=== PATIENT | female | born 1980 | race Caucasian/White ===

== ENCOUNTER 2017-10-29 15:12 | Inpatient (IN) | payer OTHER ==
[~2017-10-29] VITALS: Ht 170.2 cm; Wt 124.9 kg
--- NOTE | ~2017-10-29 | EKG ---
[address] [address] ELECTROCARDIOGRAM REPORT Name: PEYTON LAURA Room #: 206-P ADM IN M.R.#: [id number] Admission: 10/29/17 Attend Phys: Christos Braun MD Discharge: Date of : 82 Report #: [id number] THIS REPORT FOR: //name// [facility] Test Date: 2017-11-07 Test Time: 03:00:59 Pat Name: PEYTON LAURA Department: Room: 206 P Gender: F Permit Review Assistant: [facility] : 1980 Requested By: Jillian Cordero Order Number: [id number] MD: Nic Boone Measurements Intervals [place] Rate: 62 P: 10 NM: 131 QRS: 14 QRSD: 91 T: 3 QT: 371 QTc: 377 Interpretive Statements Sinus rhythm No significant abnormality Compared to ECG 10/29/2017 15:37:15 T-wave abnormality no longer present Electronically Signed On 11-07-2017 8:55:09 CDT by Nic Boone [email or web address] <ELECTRONICALLY SIGNED> By: Nic Boone MD, [facility] 11/07/17 0855 9 Nic Boone MD, [facility] /EPI
--- NOTE | ~2017-10-29 | EKG ---
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1980 Requested By: Percy Lyman Order Number: [id number] MD: Nic Boone Measurements Intervals [place] Rate: 82 P: 4 MA: 143 QRS: 0 QRSD: 94 T: -3 QT: 368 QTc: 430 Interpretive Statements Sinus rhythm Left ventricular hypertrophy Borderline T abnormalities, inferior leads Compared to ECG 08/11/2012 23:53:38 Sinus tachycardia no longer present Electronically Signed On 10-29-2017 16:46:30 CDT by Nic Boone [email or web address] <ELECTRONICALLY SIGNED> By: Nic Boone MD, [facility] 10/29/17 1646 1537 36 Nic Boone MD, [facility] /EPI
--- NOTE | ~2017-10-29 | HC ---
[facility] [place] [address] CONSULTATION Name: PEYTON LAURA Room #: 239-P ADM IN M.R.#: [id number] Admission: 10/29/17 Attend Phys: Christos Braun MD Discharge: Date of : 82 Report #: [id number] THIS REPORT FOR: //name// CC: Christos Braun NO PCP DATE OF SERVICE: 10/30/2017 REFERRAL PHYSICIAN: Christos Braun MD. REASON FOR REFERRAL: Acute respiratory failure. HISTORY OF PRESENT ILLNESS: The patient is a 37-year-old white female who presents to the Emergency Room with syncopal episode. She subsequently sustained allergic reactions to iodine contrast and possibly to morphine. As a result, she required intubation. A pulmonary consultation was requested. The patient has history of hypertension, depression disorder. She was in her usual state of health until the day prior to presentation when she had a syncopal episode. She had complaints of nausea, vomiting, diarrhea along with abdominal pain. MORPHINE WAS GIVEN, WHICH RESULTED IN PATIENT EXHIBITING FACIAL REDNESS AND PRURITUS. She was given Benadryl. She then underwent a CT imaging study with contrast. The patient was noticed to have redness throughout the whole body at this time. Following the CT chest, the patient then noticed to have muffled speech, edema surrounding her lip and tongue. The patient's who subsequently arrived later in the ER confirms that SHE IS ALLERGIC TO CONTRAST DYE. She was then intubated and was transferred to the ICU. Currently, she is stable. There is some evidence of facial edema along with neck edema is noted. PAST MEDICAL HISTORY: Notable for diabetes mellitus, asthma, bulimia, history of postural hypotension. PAST SURGICAL HISTORY: Notable for cholecystectomy, appendectomy. ALLERGIES: ADHESIVE TAPE, REACTIONS UNSPECIFIED, ATACAND CAUSES TACHYCARDIA, DEMEROL CAUSES HIVES. HOME MEDICATIONS: As stated include Glucophage, Prozac, Valium, Phenergan, Ventolin, Toprol-XL, Dexilant. FAMILY HISTORY: Noncontributory. [facility] [address] [place] [address] CONSULTATION Name: PEYTON LAURA Room #: 239-P [facility] IN M.R.#: [id number] Admission: 10/29/17 Attend Phys: Christos Braun MD Discharge: Date of : 82 Report #: [id number] SOCIAL HISTORY: The patient is a lifetime nonsmoker. No history of alcohol use. She is . REVIEW OF SYSTEMS: As mentioned above. Otherwise, deferred as the patient is intubated. PHYSICAL EXAMINATION: GENERAL: She is sedated, but arousable. VITAL SIGNS: Temperature is 98.6 degrees Fahrenheit, pulse is 90, respiratory rate 24, blood pressure 107/51 mmHg, saturation 98%. HEENT: Normocephalic, atraumatic. Mild facial edema, especially around her neck and some degree around the lip. I could not assess the tongue. NECK: Supple, without lymphadenopathy or thyromegaly. CHEST: Breath sounds are clear bilaterally without any rales or wheezes. CARDIOVASCULAR: Normal S1, S2. No murmurs or gallop. There is no JVD. There is no carotid bruit. Pulses are 2+/4+ bilaterally. ABDOMEN: Soft, nontender, no organomegaly or masses felt. GENITOURINARY: Deferred. RECTAL: Deferred. EXTREMITIES: No edema, cyanosis or clubbing. LABORATORY DATA: Chest x-ray shows small lung volumes, otherwise is clear. ET tube is approximately 2 cm above the simon. CT abdomen and pelvis was grossly unremarkable other than fatty atrophy of the left psoas muscle compatible with denervation. Electrolytes are normal, creatinine is normal. WBC hemoglobin 11.1, platelets are normal. No evidence of bandemia. Arterial blood gas revealed pH 7.28, pCO2 36, pO2 145 and FiO2 40%. Electrolytes did show evidence of metabolic acidosis with bicarbonate of 18. IMPRESSION: 1. Acute hypoxic respiratory failure in this 37-year-old white female to an APPARENT ALLERGIC REACTION TO CONTRAST DYE AND POSSIBLY MORPHINE. She has sustained swelling involving her tongue and lip. 2. Allergic reaction to contrast dye and possibly to morphine. 3. Metabolic acidosis, probably related to allergic reaction. We will need to monitor and follow closely. 4. Leukocytosis, likely reactive. 5. History of asthma without evidence of exacerbation. 6. Diabetes mellitus type 2. 7. Hypotension. 8. Recent syncopal episode. Suspect vasovagal, possible orthostatic hypotension. RECOMMENDATION: We will continue mechanical ventilation, continue corticosteroids, insulin sliding scale. DVT and GI prophylaxis recommended. We will consider weaning trials once she is deemed to be stable. [address] [address] CONSULTATION Name: PEYTON LAURA Room #: 239-P ADM IN M.R.#: [id number] Admission: 10/29/17 Attend Phys: Christos Braun MD Discharge: Date of : 82 Report #: [id number] With her upper airway edema, may need to have ENT involve prior to proceeding weaning trial to assure the upper airway edema has cleared. Continue bronchodilators for asthma. Thank you for this consultation. <ELECTRONICALLY SIGNED> By: Felton Lentz MD 10/31/17 1647 1604 1859 Felton Lentz MD /nt
--- NOTE | ~2017-10-29 | 2DMMODE ---
Former[facility] [address] [place] [address] 2 D/M-MODE ECHOCARDIOGRAM Name: PEYTON LAURA Room #: 206-P ADM IN M.R.#: [id number] Admission: 10/29/17 Attend Phys: Christos Braun, Discharge: Date of : 82 Date of Service: 11/05/17 1450 Report #: [id number] THIS REPORT FOR: //name// APPROVED REPORT Study performed: 11/05/2017 13:04:11 EXAM: Comprehensive 2D, Doppler, and color-flow Echocardiogram Patient Location: Echo lab Room #: 206 Status: routine BSA: 2.34 HR: 60 bpm BP: 153/72 mmHg Rhythm: NSR Other Information Study Quality: Good Indications Syncope Hx: HTN 2D Dimensions RVDd: 37.88 mm LVEF(%): 76.53 (>50%) IVSd: 9.56 (7-11mm) LVOT Diam: 23.01 (18-24mm) LVDd: 50.76 mm PWd: 9.08 (7-11mm) Ascending Ao: 31.00 (22-36mm) LVDs: 27.69 (25-40mm) Aortic Root: 30.80 mm Sidhu's LVEF: 76.53 % Volumes Left Atrial Volume (Systole) Single Plane 4CH: 56.49 mL Single Plane 2CH: 53.84 mL LA ESV Index: 26.00 mL/m2 Aortic Valve AoV Peak Umer.: 1.62 m/s AO Peak Gr.: 10.52 mmHg LVOT Max P.11 mmHg LVOT Max V: 1.51 m/s ARSH Vmax: 3.87 cm2 Mitral Valve E/A Ratio: 1.4 [facility] [address] [place] [address] 2 D/M-MODE ECHOCARDIOGRAM Name: LAURAPEYTON ISMAEL Room #: 206-P [facility] IN ..#: [id number] Admission: 10/29/17 Attend Phys: Christos Braun, Discharge: Date of : 82 Date of Service: 11/05/17 1450 Report #: [id number] MV Decel. Time: 247.21 ms MV E Max Umer.: 1.13 m/s MV A Umer.: 0.78 m/s MV PHT: 71.69 ms IVRT: 73.82 ms Pulmonary Valve PV Peak Umer.: 1.32 m/s PV Peak Gr.: 6.93 mmHg Pulmonary Vein P Vein S: 0.97 m/s P Vein A: 0.38 m/s P Vein D: 0.73 m/s P Vein A Dur.: 120.0 msec P Vein S/D Ratio: 1.33 Tricuspid Valve TR Peak Umer.: 2.75 m/s TR Peak Gr.: 30.30 mmHg Left Ventricle The left ventricle is normal size. There is normal left ventricular wall thickness. The left ventricular systolic function is normal. LVEF is 60-65%. The left ventricular diastolic function is normal. Right Ventricle The right ventricle is normal size. The right ventricular systolic function is normal. Atria The left atrium size is normal. The right atrium size is normal. Aortic Valve The aortic valve is normal in structure. No aortic regurgitation is present. There is no aortic valvular stenosis. Mitral Valve The mitral valve is normal in structure. Trace mitral regurgitation. No evidence of mitral valve stenosis. Tricuspid Valve The tricuspid valve is normal in structure. Trace to mild tricuspid regurgitation. Estimated PAP 30 mmHg plus right atrial pressure. Pulmonic Valve [address] [address] 2 D/M-MODE ECHOCARDIOGRAM Name: PEYTON LAURA Room #: 206-P [facility] IN .R.#: [id number] Admission: 10/29/17 Attend Phys: Christos Braun, Discharge: Date of : 82 Date of Service: 11/05/17 1450 Report #: [id number] The pulmonary valve is normal in structure. There is no pulmonic valvular regurgitation. Great Vessels The aortic root is normal in size. The ascending aorta is normal in size. IVC is not well visualized. Pericardium There is no pericardial effusion. <Conclusion> The left ventricle is normal size. LVEF is 60-65%. The aortic valve is normal in structure. The mitral valve is normal in structure. Trace mitral regurgitation. The tricuspid valve is normal in structure. Trace to mild tricuspid regurgitation. Estimated PAP 30 mmHg plus right atrial pressure. The pulmonary valve is normal in structure. There is no pericardial effusion. <ELECTRONICALLY SIGNED> By: Adriel Ochoa MD 11/05/17 1450 1450 1450 Adriel Ochoa MD /INF
[~2017-10-29 15:12] MED LIST: ALDACTONE50 MG PO; AMBIEN 10 MG TA10 MG PO; AMBIEN CR 6.26.25 MG; AMITRIPTYLINE H50 M2 PO; ANUSOL-HC21 GM RE; ATIVAN1 MG PO; BACTRIM DS TAB1 EACH PO; BENTYL10 MG PO; BYSTOLIC10 MG PO; BYSTOLIC2.5 MG PO; CARAFATE 11 GM/10 M1 PO; CIPROFLOXACIN500 M1 PO; CIPROFLOXACIN500 M3 PO; CITRATE OF MAG296 ML PO; CLARITIN10 M2 PO; COLACE100 MG PO; EFFEXOR XR75 MG PO; FISH OIL 1,0001 EAC5 PO; GEODON80 MG; GLUCOPHAGE1000 MG PO; GLUCOPHAGE500 MG PO; HYDROCODONE-AC120 ML PO; LEVSIN PO; MIRALAX255 GM; NEURONTIN 400400 M1 PO; NEXIUM 40 MG CA40 M1 PO; NORCO 5-325 TA1 EACH PO; PEPCID40 MG PO; PERCOCET; PERCOCET 5-3251 EACH PO; PERIACTIN PO; PHENERGAN 25 MG25 M1 PO; PREDNISONE 20 M20 M1 PO; PRENATAL PO; PREVACID15 MG PO; PROMETHAZINE12.5 M4 RE; PROTONIX40 M2 PO; PROZAC 20 MG20 M1 PO; SLOW-MAG64 MG PO; SPIRONOLACTONE50 MG PO; TOPAMAX50 MG; VALIUM5 MG PO; XANAX 0.25 MG0.25 MG PO; XANAX 1 MG TABLE1 MG PO; ZOFRAN 4 MG ORAL4 M1 DIS; ZOFRAN ODT4 MG PO; ZOFRAN4 MG PO
[2017-10-29 15:13] VITALS: BP 138/72
[2017-10-29] MEDS ORDERED: VALIUM5 MG PO (15:36)
[2017-10-29] MEDS ORDERED: PROZAC20 MG PO (15:36)
[2017-10-29] MEDS ORDERED: PHENERGAN 25 MG25 M1 PO (15:36)
[2017-10-29] MEDS ORDERED: VENTOLIN HFA 1818 GM INH (15:37)
[2017-10-29] MEDS ORDERED: TOPROL XL100 MG PO (15:38)
[2017-10-29] MEDS ORDERED: DEXILANT60 MG PO (15:38)
[2017-10-29 16:24] LABS: ABSOLUTE NEUTROPHILS 7.4 thou/uL (1.4-8.2); BASOPHILS 0.8 % (0.0-2.0); EOSINOPHILS 1.2 % (0.0-3.0); HEMATOCRIT 35.2 % (37.0-47.0); HEMOGLOBIN 11.3 gm/dL (12.0-15.0); LYMPHOCYTES 19.2 % (24.0-44.0); MCH 24.1 pg (26.0-34.0); MCV 75.3 fL (80.0-100.0); MONOCYTES 7.8 % (1.0-8.0); PLATELET COUNT 301 thou/uL (150-400); RBC 4.68 mil/uL (4.20-5.00); RDW 17.1 % (10.5-14.5); WBC 10.5 thou/uL (4.0-11.0)
[2017-10-29 16:35] LABS: CALCIUM 9.4 mg/dL (8.5-10.1); POTASSIUM 3.9 mmol/L (3.5-5.1)
[2017-10-29 16:40] LABS: ALBUMIN 3.8 g/dL (3.4-5.0); TOTAL BILIRUBIN 0.3 mg/dL (<0.1-1.0); TOTAL PROTEIN 7.3 g/dL (6.4-8.2)
[2017-10-29 16:58] LABS: URINE BILIRUBIN NEGATIVE (Negative); URINE BLOOD 1+ (Negative); URINE CLARITY CLEAR; URINE COLOR YELLOW; URINE GLUCOSE-RANDOM* NEGATIVE (Negative); URINE KETONES NEGATIVE (Negative); URINE LEUKOCYTES-REFLEX NEGATIVE (Negative); URINE NITRITE-REFLEX NEGATIVE (Negative); URINE PROTEIN (DIPSTICK) NEGATIVE (Negative); URINE UROBILINOGEN 0.2 E.U./dl (0.2-1.0)
[2017-10-29 17:06] LABS: BACTERIA-REFLEX None Seen /HPF (None Seen); CASTS None Seen /LPF (None Seen); CRYSTALS None Seen /LPF (None Seen); MUCUS >6 Heavy strn/LPF (None Seen); SQUAMOUS 0-3 Few /LPF (0-3); URINE RBC 0-2 Rare /HPF (0-2); URINE WBC-REFLEX 0-5 Rare /HPF (0-5)
[2017-10-29 19:06] VITALS: BP 156/127
[2017-10-29 19:08] LABS: HCO3 16.8 mmol/L (22.0-26.0); PCO2 36.1 mmHg (35.0-45.0); PO2 145.4 mmHg (80.0-100.0); pH 7.285 (7.360-7.450); sO2 98.6 % (92.0-98.0)
[2017-10-30] VITALS (18 sets, daily range): BP systolic 81–130; BP diastolic 41–69
[2017-10-30 04:58] LABS: BE(vivo) -6.7 mmol/L (-2 to +3); HCO3 17.6 mmol/L (22.0-26.0); PCO2 31.4 mmHg (35.0-45.0); PO2 127.4 mmHg (80.0-100.0); pH 7.366 (7.360-7.450); sO2 98.5 % (92.0-98.0)
[2017-10-30 06:47] LABS: HEMATOCRIT 34.2 % (37.0-47.0); HEMOGLOBIN 11.1 gm/dL (12.0-15.0); MCH 24.3 pg (26.0-34.0); MCHC 32.4 g/dL (28.0-37.0); RBC 4.56 mil/uL (4.20-5.00); RDW 17.7 % (10.5-14.5); WBC 16.6 thou/uL (4.0-11.0)
[2017-10-30 06:52] LABS: CREATININE 0.9 mg/dL (0.6-1.0); MAGNESIUM 1.6 mg/dL (1.8-2.4); POTASSIUM 4.5 mmol/L (3.5-5.1)
[2017-10-31] VITALS (13 sets, daily range): BP systolic 82–138; BP diastolic 41–113
[2017-10-31 05:54] LABS: BE(vivo) -3.2 mmol/L (-2 to +3); HCO3 20.8 mmol/L (22.0-26.0); PCO2 33.6 mmHg (35.0-45.0); PO2 98.6 mmHg (80.0-100.0); sO2 97.6 % (92.0-98.0)
[2017-10-31 10:10] LABS: BE(vivo) -0.9 mmol/L (-2 to +3); HCO3 21.7 mmol/L (22.0-26.0); PCO2 28.7 mmHg (35.0-45.0); PO2 123.9 mmHg (80.0-100.0); pH 7.497 (7.360-7.450); sO2 98.8 % (92.0-98.0)
[2017-10-31 11:47] LABS: CALCIUM 8.4 mg/dL (8.5-10.1); CREATININE 0.9 mg/dL (0.6-1.0); POTASSIUM 4.3 mmol/L (3.5-5.1)
[2017-10-31 18:08] LABS: HEMATOCRIT 25.6 % (37.0-47.0); MCH 26.7 pg (26.0-34.0); MCHC 35.4 g/dL (28.0-37.0); MCV 75.4 fL (80.0-100.0); RBC 3.4 mil/uL (4.20-5.00); RDW 17.7 % (10.5-14.5); WBC 10.4 thou/uL (4.0-11.0)
[2017-10-31 18:11] LABS: HEMOGLOBIN 9.1 gm/dL (12.0-15.0)
[2017-11-01] VITALS (24 sets, daily range): BP systolic 109–159; BP diastolic 60–114
[2017-11-01 04:57] LABS: CALCIUM 8.7 mg/dL (8.5-10.1); CREATININE 0.7 mg/dL (0.6-1.0); MAGNESIUM 2.6 mg/dL (1.8-2.4); POTASSIUM 3.9 mmol/L (3.5-5.1)
[2017-11-01 05:08] LABS: HEMATOCRIT 28.9 % (37.0-47.0); HEMOGLOBIN 9.3 gm/dL (12.0-15.0); MCH 24.3 pg (26.0-34.0); MCHC 32.2 g/dL (28.0-37.0); MCV 75.5 fL (80.0-100.0); RBC 3.83 mil/uL (4.20-5.00); RDW 17.8 % (10.5-14.5); WBC 9.8 thou/uL (4.0-11.0)
[2017-11-01 05:35] LABS: BE(vivo) -1.3 mmol/L (-2 to +3); HCO3 23.2 mmol/L (22.0-26.0); PCO2 37.7 mmHg (35.0-45.0); PO2 105.7 mmHg (80.0-100.0); pH 7.407 (7.360-7.450); sO2 97.9 % (92.0-98.0)
[2017-11-01 11:08] LABS: BE(vivo) -1.3 mmol/L (-2 to +3); HCO3 23.2 mmol/L (22.0-26.0); PCO2 38.1 mmHg (35.0-45.0); PO2 116.2 mmHg (80.0-100.0); pH 7.403 (7.360-7.450); sO2 98.3 % (92.0-98.0)
[2017-11-02] VITALS (26 sets, daily range): BP systolic 108–151; BP diastolic 58–117
[2017-11-02 04:34] LABS: HEMATOCRIT 27.9 % (37.0-47.0); HEMOGLOBIN 9.2 gm/dL (12.0-15.0); MCH 24.5 pg (26.0-34.0); MCHC 32.8 g/dL (28.0-37.0); MCV 74.6 fL (80.0-100.0); RBC 3.74 mil/uL (4.20-5.00); RDW 17.2 % (10.5-14.5); WBC 9.9 thou/uL (4.0-11.0)
[2017-11-02 04:43] LABS: CALCIUM 8.7 mg/dL (8.5-10.1); CREATININE 0.7 mg/dL (0.6-1.0); MAGNESIUM 2.7 mg/dL (1.8-2.4)
[2017-11-02 05:16] LABS: BE(vivo) 0.6 mmol/L (-2 to +3); HCO3 24.8 mmol/L (22.0-26.0); PCO2 38.1 mmHg (35.0-45.0); PO2 74.6 mmHg (80.0-100.0); pH 7.432 (7.360-7.450); sO2 95.4 % (92.0-98.0)
[2017-11-03 00:26] LABS: BE(vivo) -2.5 mmol/L (-2 to +3); HCO3 20.5 mmol/L (22.0-26.0); PCO2 29.7 mmHg (35.0-45.0); PO2 84.4 mmHg (80.0-100.0); pH 7.457 (7.360-7.450); sO2 96.9 % (92.0-98.0)
[2017-11-03 04:58] VITALS: BP 145/82
[2017-11-03 07:00] VITALS: BP 153/83
[2017-11-03 12:04] VITALS: BP 146/83
[2017-11-03 15:52] VITALS: BP 150/86
[2017-11-03 19:42] VITALS: BP 148/84
[2017-11-04 04:16] VITALS: BP 138/79
[2017-11-04 07:40] VITALS: BP 127/69
[2017-11-04 17:23] VITALS: BP 131/76
[2017-11-04 19:13] VITALS: BP 146/77
[2017-11-05] VITALS (8 sets, daily range): BP systolic 132–153; BP diastolic 57–88
[2017-11-06 03:59] LABS: HEMATOCRIT 31.8 % (37.0-47.0); HEMOGLOBIN 10.1 gm/dL (12.0-15.0); MCH 23.9 pg (26.0-34.0); MCHC 31.7 g/dL (28.0-37.0); MCV 75.3 fL (80.0-100.0); PLATELET COUNT 303 thou/uL (150-400); RBC 4.22 mil/uL (4.20-5.00); RDW 17.6 % (10.5-14.5); WBC 13.3 thou/uL (4.0-11.0)
[2017-11-06 04:18] LABS: ALBUMIN 3.2 g/dL (3.4-5.0); CALCIUM 8.5 mg/dL (8.5-10.1); CREATININE 0.8 mg/dL (0.6-1.0); MAGNESIUM 2.1 mg/dL (1.8-2.4); POTASSIUM 3.2 mmol/L (3.5-5.1); TOTAL BILIRUBIN 0.3 mg/dL (<0.1-1.0); TOTAL PROTEIN 5.9 g/dL (6.4-8.2)
[2017-11-06 04:41] VITALS: BP 148/81
[2017-11-06 05:14] LABS: ABSOLUTE NEUTROPHILS 8.6 thou/uL (1.4-8.2); METAMYELOCYTES 1 %
[2017-11-06 05:15] LABS: ANISOCYTOSIS 1+
[2017-11-06 07:16] VITALS: BP 139/73
[2017-11-06 07:17] VITALS: BP 149/80; BP 157/82
[2017-11-06 12:41] VITALS: BP 142/80
[2017-11-06 14:58] VITALS: BP 144/86
[2017-11-06 20:02] VITALS: BP 148/83
[2017-11-07 00:18] VITALS: BP 152/84
[2017-11-07 02:55] LABS: ALBUMIN 3.5 g/dL (3.4-5.0); ANION GAP 13 mmol/L (7-16); BUN 11 mg/dL (7-18); CALCIUM 9.2 mg/dL (8.5-10.1); CHLORIDE 101 mmol/L (98-107); CO2 25 mmol/L (21-32); CREATININE 0.9 mg/dL (0.6-1.0); GLUCOSE 209 mg/dL (74-106); SGOT 8 U/L (15-37); SGPT 33 U/L (30-65); SODIUM 139 mmol/L (136-145); TOTAL BILIRUBIN 0.3 mg/dL (<0.1-1.0); TOTAL PROTEIN 6.5 g/dL (6.4-8.2); TROPONIN-I < 0.04 ng/mL (<0.06)
[2017-11-07 05:19] VITALS: BP 145/92
[2017-11-07 08:19] VITALS: BP 134/88
[2017-11-07] MEDS ORDERED: PREDNISONE 10 M10 MG PO (10:20)
[2017-11-07 11:03] VITALS: BP 134/88
== END 2017-11-07 17:13 | disposition home or self-care (01) | DRG 208 ==
LOC: ER 15:12 → ICU 18:44 → EROBS 18:44 → ICU 19:46 → 2N 11-02 23:04
PROVIDERS: Internal Medicine; Internal Medicine Pulmonary Disease; Nurse Practitioner Family; Physician Assistant
DX: J96.01 Acute respiratory failure with hypoxia (principal); E43 Unspecified severe protein-calorie malnutrition; T78.2XXA Anaphylactic shock, unspecified, initial encounter; E87.2 Acidosis; F50.2 Bulimia nervosa; Z68.41 Body mass index [BMI] 40.0-44.9, adult; J45.909 Unspecified asthma, uncomplicated; D72.829 Elevated white blood cell count, unspecified; I95.9 Hypotension, unspecified; E11.9 Type 2 diabetes mellitus without complications; I10 Essential (primary) hypertension; K21.9 Gastro-esophageal reflux disease without esophagitis; T50.8X5A Adverse effect of diagnostic agents, initial encounter; R13.10 Dysphagia, unspecified; F41.9 Anxiety disorder, unspecified; E66.9 Obesity, unspecified; R49.0 Dysphonia; Z79.899 Other long term (current) drug therapy; Z90.49 Acquired absence of other specified parts of digestive tract; Z88.8 Allergy status to other drugs, medicaments and biological substances; Z90.711 Acquired absence of uterus with remaining cervical stump; Y92.89 Other specified places as the place of occurrence of the external cause
CPT/HCPCS: 10078; 10081; 27000; 62110; 62900; 70005

== ENCOUNTER 2018-10-28 18:23 | Inpatient (IN) | payer OTHER ==
[~2018-10-28] VITALS: Ht 167.6 cm; Wt 104.3 kg
--- NOTE | ~2018-10-28 | P ---
[facility] [place] [address] PROCEDURE REPORT Name: PEYTON LAURA Room #: 364-P ADM IN M.R.#: [id number] Admission: 10/28/18 ������������������ Attend Phys: Amari Schilling Discharge: ������������������ Date of : 82 Report #: [id number] THIS REPORT FOR: //name// CC: MARYCARMEN Schilling Physician staff BRIEF HISTORY: The patient is a 38-year-old woman with nausea, vomiting. She does give a history of gastroparesis diagnosed many years ago with an abnormal gastric emptying study and an endoscopy showing retained material in the stomach. She presents now with nausea, vomiting and recurrent solid food dysphagia. PREOPERATIVE DIAGNOSES: Nausea, vomiting, solid food dysphagia. POSTOPERATIVE DIAGNOSES: 1. Moderate diffuse gastritis. 2. Dysphagia. MEDICATIONS: Deep sedation with propofol per anesthesia. SPECIMEN: Biopsies of gastritis. ESTIMATED BLOOD LOSS: 3 mL. PROCEDURE: EGD with biopsy. FINDINGS: Prior to propofol sedation, procedure of upper endoscopy discussed with the patient as well as potential risks and its complications. She indicates she understands and desires to proceed. DESCRIPTION OF PROCEDURE: With the patient in left lateral decubitus position, the Olympus video endoscope was inserted in cervical esophagus under direct vision without difficulty. Examination of this organ through its entire length revealed normal esophageal mucosa down the squamocolumnar junction. The squamocolumnar junction was inspected and noted to be unremarkable. No ulcers or erosions were seen. There is no evidence of strictures or mass lesions or hiatus hernia. There was no endoscopic evidence of esophagitis. The scope was advanced in the stomach, which was examined on end view as well as retroflexed views. There was a moderate gastritis with diffuse erythema; however, no ulcers or erosions were seen. Upon retroflexion, no mass lesions were seen. Also, there are no retained solids or liquids in the stomach to suggest gastroparesis at this time. The pylorus, duodenal bulb, and postbulbar duodenal sweep were all inspected and noted to be unremarkable. At that point, the scope was slowly withdrawn and careful circumferential views confirmed the above finding. Biopsies obtained of the gastritis. The patient tolerated the procedure well. [facility] [address] [place] [address] PROCEDURE REPORT Name: PEYTON LAURA Room #: 364-P [facility] IN M.R.#: [id number] Admission: 10/28/18 ������������������ Attend Phys: Amari Schilling Discharge: ������������������ Date of : 82 Report #: [id number] Following procedure, she was dilated with passage of 54-Turkish Roman dilator and there was no resistance. DISPOSITION: The patient with nausea and vomiting as well as a history of gastroparesis and bulimia. I do not see evidence of outlet obstruction or retained material in the stomach. However, that does not exclude the possibility of gastroparesis. She had benefit from erythromycin in the past. Would agree with continuing the erythromycin. A PPI would be reasonable as well. As far as her dysphagia, she was dilated with a 52-Turkish Roman dilator and this can be repeated on an as needed basis. ��������������������������������������������� ���������������������������������������� By: ��������������������������������������������� 1317 0622 Ollie Zavala MD /nt
[~2018-10-28 18:23] MED LIST changes: +DEXILANT60 MG PO; +ERYTHROMYCIN250 M1 PO; +GLUCOPHAGE XR750 MG PO; +LUNESTA3 MG PO; +NEURONTIN 300300 M1 PO; +PREDNISONE 10 M10 MG PO; +PROZAC10 MG PO; +PROZAC20 MG PO; +SAPHRIS10 MG; +TOPROL XL100 MG PO; +TOPROL XL25 MG PO; +VENTOLIN HFA 1818 GM INH
[2018-10-28 18:36] VITALS: BP 156/78
--- NOTE | 2018-10-28 18:58 | NUR ---
IV TEAM CALLED, TOLD OF SITUATION. [employer] UNABLE TO GET LINE THUS FAR.
[2018-10-28 22:19] LABS: HEMATOCRIT 42.7 % (37.0-47.0); HEMOGLOBIN 14.3 gm/dL (12.0-15.0); MCH 30.6 pg (26.0-34.0); MCHC 33.4 g/dL (28.0-37.0); MCV 91.6 fL (80.0-100.0); PLATELET COUNT 290 thou/uL (150-400); RBC 4.67 mil/uL (4.20-5.00); RDW 14.6 % (10.5-14.5)
[2018-10-28 22:21] LABS: ANION GAP 15 mmol/L (7-16); BUN 7 mg/dL (7-18); CALCIUM 9.7 mg/dL (8.5-10.1); CHLORIDE 101 mmol/L (98-107); CO2 22 mmol/L (21-32); CREATININE 0.7 mg/dL (0.6-1.0); GLUCOSE 169 mg/dL (74-106); POTASSIUM 3.4 mmol/L (3.5-5.1); SODIUM 138 mmol/L (136-145)
[2018-10-28 22:26] LABS: AMP/METHAMP Negative (Negative); BARBITURATES Negative (Negative); BENZODIAZEPINES Negative (Negative); COCAINE Negative (Negative); METHADONE Negative (Negative); OPIATES Negative (Negative); PCP Negative (Negative)
[2018-10-28 22:31] LABS: ALBUMIN 4.1 g/dL (3.4-5.0); MAGNESIUM 1.8 mg/dL (1.8-2.4); SGOT 32 U/L (15-37); SGPT 35 U/L (30-65); TOTAL BILIRUBIN 0.3 mg/dL (<0.1-1.0); TOTAL PROTEIN 7.6 g/dL (6.4-8.2); TROPONIN-I <0.06 ng/mL (<0.06)
[2018-10-28 22:34] LABS: APTT 26.9 Seconds (24.5-32.8); D-DIMER 0.27 ug/mLFEU (0.19-0.50); PROTIME 9.7 Seconds (9.3-11.4)
[2018-10-28 23:00] LABS: METAMYELOCYTES 1 %
[2018-10-28 23:01] LABS: ANISOCYTOSIS 1+; PLATELET ESTIMATE NORMAL; POLYCHROMASIA 1+
[2018-10-28 23:24] VITALS: BP 134/71
[2018-10-28 23:39] VITALS: BP 129/59
[2018-10-29] VITALS: BP 102/55
[2018-10-29] MEDS ORDERED: NEURONTIN600 MG PO (00:44)
[2018-10-29] MEDS ORDERED: PROZAC20 MG PO (00:45)
[2018-10-29] MEDS ORDERED: ZANTAC 150MG T150 M1 PO (00:48)
[2018-10-29] MEDS ORDERED: MIRALAX17 GM PO (00:49)
[2018-10-29] MEDS ORDERED: K-PHOS NEUTRAL250 MG PO ×2 (00:52)
[2018-10-29] MEDS ORDERED: CLONAZEPAM 0.50.5 M1 PO ×2 (00:57→03:39)
[2018-10-29 01:37] LABS: URINE BILIRUBIN NEGATIVE (Negative); URINE BLOOD TRACE (Negative); URINE CLARITY CLEAR; URINE COLOR YELLOW; URINE GLUCOSE-RANDOM* NEGATIVE (Negative); URINE KETONES NEGATIVE (Negative); URINE LEUKOCYTES-REFLEX NEGATIVE (Negative); URINE NITRITE-REFLEX NEGATIVE (Negative); URINE PROTEIN (DIPSTICK) NEGATIVE (Negative); URINE UROBILINOGEN 0.2 E.U./dl (0.2-1.0)
[2018-10-29] MEDS ORDERED: SINGULAIR 10 MG10 M1 PO (03:50)
[2018-10-29 04:33] VITALS: BP 111/64
[2018-10-29 07:42] VITALS: BP 115/57
--- NOTE | 2018-10-29 08:06 | EKG ---
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1980 Requested By: Bertin Barboza Order Number: [id number] MD: Nic Boone Measurements Intervals [place] Rate: 101 P: 7 RI: 125 QRS: -3 QRSD: 90 T: -13 QT: 365 QTc: 474 Interpretive Statements Sinus tachycardia Nonspecific ST and T wave abnormality Compared to ECG 02/03/2018 13:28:34 No significant change was found Electronically Signed On 10-29-2018 8:06:17 CDT by Nic Boone [email or web address] ��������������������������������������������� <ELECTRONICALLY SIGNED> ���������������������������������������� By: Nic Boone MD, [facility] ��������������������������������������������� 10/29/18 0806 11 11 Nic Boone MD, [facility] /EPI
[2018-10-29 08:18] LABS: CALCIUM 9.2 mg/dL (8.5-10.1); CREATININE 0.9 mg/dL (0.6-1.0)
[2018-10-29 08:22] LABS: POTASSIUM 4.4 mmol/L (3.5-5.1)
[2018-10-29 11:10] VITALS: BP 113/73
[2018-10-29 12:07] LABS: HBsAG-EMPLOYEE EXPOSURE Negative (Negative); HCV AB-EMPLOYEE EXPOSURE 0.1 (0.0-0.9)
[2018-10-29 15:35] VITALS: BP 144/84
--- NOTE | 2018-10-29 16:55 | NUR ---
Assumed care of Pt at 0700. Pt AOX4 in mod resp distress. stridorous to auscultation. frequently coughing - complaining of sore chest, tearful at times. racemic treatments provided by RT for good relief. robitussin DM ordered. up w/ sba and steady gait. tremulous. sinus on telemetry. calls out appropriately. showered today. pt progressing toward poc goals.
[2018-10-29 19:18] VITALS: BP 129/65
[2018-10-30 04:44] VITALS: BP 100/57
--- NOTE | 2018-10-30 05:31 | NUR ---
AT APPROX 1999, PT WAS WALKING AROUND UNIT WITH IV POLE. PT BECAME SOA ABOUT 3/4 [address] AROUND. HELPED PT BACK TO ROOM AND IN BED. PT ANXIETY LEVEL WAS VERY HIGH AND LABORED BREATHING. PT STATED SHE WAS HAVING CHEST PAIN AT THIS POINT, GAVE 1 NITRO SL AND HAD GOOD RESULTS WITH DECREASED CHEST PAIN. FOLLOWING POC WITH IVF, PAIN MEDICATION, AND BENADRYL. HOURLY ROUNDING.
[2018-10-30 05:32] LABS: HEMATOCRIT 37.1 % (37.0-47.0); MCH 31.2 pg (26.0-34.0); MCHC 33.2 g/dL (28.0-37.0); MCV 93.8 fL (80.0-100.0); RBC 3.96 mil/uL (4.20-5.00); RDW 14.5 % (10.5-14.5); WBC 18.6 thou/uL (4.0-11.0)
[2018-10-30 05:39] LABS: HEMOGLOBIN 12.3 gm/dL (12.0-15.0)
[2018-10-30 07:59] VITALS: BP 103/52
--- NOTE | 2018-10-30 08:59 | NUR ---
ASSESSMENT: CM REVIEWED CHART AND MET WITH PATIENT AT THE BEDSIDE. PT IS ALERT AND ORIENTED X4. PT REPORTS SHE LIVES AT HOME WITH HER AND CHILD. PT REPORTS BEING FULLY INDEPENDENT WITH ADLS AND AMBULATION. PT WAS ADMITTED WITH ANAPHYLACTIC RX AFTER EATING A BROWNIE WITH NUTS AND USED HER EPIPEN AT HOME. PT REPORTS SHE HAS A PCP. PT REPORTED SHE ALSO HAS A HX OF BULEMIA AND THAT SHE GOES TO A PROGRAM DAILY AT [facility]. SHE STATES SHE ALSO HAS A PSYCHIATRIST AT [facility] AND SEES AN OUTPATIENT THERAPIST. PT REPORTS SHE HAS HAD HH IN THE PAST BUT NOT CURRENTLY AND DOES NOT FEEL SHE WILL NEED HH. PT REPORTS HAVING A NEBULIZER AT HOME. CM DISCUSSED ROLE. PT DOES NOT ANTICIPATE HAVING ANY NEEDS FROM CM PRIOR TO DISCHARGE.
[2018-10-30 12:01] VITALS: BP 121/60
[2018-10-30 17:01] VITALS: BP 148/88
--- NOTE | 2018-10-30 17:11 | NUR ---
Assumed care of Pt at 0700. Pt alert and oriented, in mild resp distress. audibly stridorous, but appears to be improved. tremulous. otherwise up w/ steady indipedent gait. showered. complains of soreness to chest from frequent coughing fits. mucinex w/ codeine and sepocol lozenges ordered for good relief. ambulating around hallways frequently. sinus on telemetry. pt progressing toward poc goals.
[2018-10-30 21:09] VITALS: BP 143/81
--- NOTE | 2018-10-31 04:52 | NUR ---
ASSUMED FROM PREVIOUS SHIFT PT HAVE NON-PRODUCTIVE COUGH , LUNGS SOUNDS WITH STRIDOR RA SAT 95 % TOLERATING RESP TREATMENT. PAIN MEDICATION GIVEN PRESCRIBED AND REQUESTED. 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 DISUCSSED PLAN OF CARE AND AGREEABLE. PT RESTED WELL THROUGHOUT HOURLY ROUNDS.
[2018-10-31 05:10] VITALS: BP 157/99
[2018-10-31 08:04] VITALS: BP 137/95
[2018-10-31 11:32] VITALS: BP 146/91
[2018-10-31 12:25] LABS: BE(vivo) 0.1 mmol/L (-2 to +3); HCO3 23.1 mmol/L (22.0-26.0); PCO2 32.5 mmHg (35.0-45.0); PO2 103.3 mmHg (80.0-100.0); sO2 98.1 % (92.0-98.0)
--- NOTE | 2018-10-31 12:33 | NUR ---
ON-GOING ASSESSMENT: PT IS SLOWLY PROGRESSING TOWARDS DISCHARGE GOALS. PT IS REPORTING HER THROAT FEELS TIGHT AND IS ITCHY. PT REMAINS ON HIGH DOSE OF STEROIDS AND PULM WAS CONSULTED. PT ANTICIPATES SHE WILL BE ABLE TO GO HOME WITH NO NEEDS ONCE MEDICALLY STABLE.
[2018-10-31 16:22] VITALS: BP 146/86
--- NOTE | 2018-10-31 16:36 | NUR ---
AAAXO4 PLEASANT AND COOPERTIVE. COUGH WITH STRIDOR WITH RESPERS. ON ROOM AIR. GETS PAIN RELIEF FROM GUIFENSEN, DILAUDID, BENEDRYL. IV LEFT EXTERNAL JUGULAR. UP WITH STEADY GAIT TO BATHROOM. GOOD APPETITE.
[2018-10-31 20:16] VITALS: BP 143/81
[2018-11-01 03:08] VITALS: BP 133/83
[2018-11-01 06:14] LABS: HEMATOCRIT 34.8 % (37.0-47.0); HEMOGLOBIN 11.9 gm/dL (12.0-15.0); MCH 31.1 pg (26.0-34.0); MCHC 34.1 g/dL (28.0-37.0); MCV 91.1 fL (80.0-100.0); RBC 3.82 mil/uL (4.20-5.00); RDW 14.3 % (10.5-14.5); WBC 13.4 thou/uL (4.0-11.0)
[2018-11-01 06:31] LABS: CALCIUM 8.8 mg/dL (8.5-10.1); CREATININE 0.8 mg/dL (0.6-1.0); POTASSIUM 3.7 mmol/L (3.5-5.1)
[2018-11-01 07:24] VITALS: BP 151/60
--- NOTE | 2018-11-01 07:52 | NUR ---
SLEPT PART OF NOC. STATES BEST NOC SLEEP IN HOSPITAL SO FAR. PAIN MEDICATION EVERY 3 HOURS WITH RELIEF. UP AD [place]KE WITH STEADY GAIT. WORKING ON GOALS AND PLAN OF CARE FOR NOC. PROGRESSING TOWARDS DISCHARGE GOALS SLOWLY. CONTINUE TO ASSES.
[2018-11-01 11:49] VITALS: BP 146/77
--- NOTE | 2018-11-01 17:21 | HC ---
[facility] [place] [address] CONSULTATION Name: PEYTON LAURA Room #: 364-P ADM IN M.R.#: [id number] Admission: 10/28/18 ������������������ Attend Phys: Amari Schilling Discharge: ������������������ Date of : 82 Report #: [id number] THIS REPORT FOR: //name// CC: MARYCARMEN Schilling Physician staff REFERRAL PHYSICIAN: Amari Schilling MD. REASON FOR REFERRAL: Dyspnea. HISTORY OF PRESENT ILLNESS: The patient is a 38-year-old white female who presents to the ED following reported anaphylactic reaction to brownie and nuts. Since admission, the patient continues to have episodic bronchospasm, dyspnea, wheezing, questionable stridor. A pulmonary consultation was requested. The patient is known to this physician from her past hospitalization about a year ago. The patient has a history of allergies. When she was hospitalized about a year ago, she was ALLERGIC TO MORPHINE, CONTRAST DYE, which resulted in upper airway edema, facial edema. She was intubated. On this admission, she apparently ate a brownie which had nuts in it. She has a history of HAZELNUT allergy. When she started to develop anaphylactic reaction to the nuts, she had self-administered EpiPen at home. Following this, she noted that her throat felt tight, she noticed her mouth was itching. She presented to the Emergency Room. PAST MEDICAL HISTORY: Notable for bulimia, anxiety disorder, panic attacks, vocal cord dysfunction, severe generalized anxiety disorder, history of postural hypotension with multiple syncopal episodes, history of asthma, GERD, hypertension, diabetes mellitus type 2, depression, ovarian cyst on the left, essential tremors, pulmonary embolus from a previous PICC line placement, history of atrial flutter, history of esophagitis, gastritis, recent respiratory failure about a month ago when she was residing in [place]. ALLERGIES: CONTRAST DYE resulting in severe anaphylaxis that occurred of 10/2017, REGLAN, reactions not specified, ADHESIVE TAPE, allergies to HAZELNUT, CANDESARTAN CILEXETIL, causes tachycardia, DEMEROL causes hives. HOME MEDICATIONS: Singulair, Neurontin, Prozac, Zantac, glycol, K-Phos, clonazepam, Toprol-XL, Ventolin, Dexilant. FAMILY HISTORY: Noncontributory. SOCIAL HISTORY: She is . Denies any tobacco or alcohol use. She is a [facility] [address] [place] [address] CONSULTATION Name: PEYTON LAURA Room #: 364-P [facility] IN M.R.#: [id number] Admission: 10/28/18 ������������������ Attend Phys: Amari Schilling Discharge: ������������������ Date of : 82 Report #: [id number] lifetime nonsmoker. REVIEW OF SYSTEMS: As mentioned above, otherwise unremarkable. PHYSICAL EXAMINATION: GENERAL: She is awake, alert, appears in mild distress. She has audible expiratory wheezes. VITAL SIGNS: Temperature is 99 degrees Fahrenheit, pulse is 60, respiratory rate is 20, blood pressure 146/86 mmHg and saturation 96%. HEENT: Normocephalic, atraumatic. NECK: Supple, without lymphadenopathy or thyromegaly. CHEST: Breath sounds are good with mild bilateral expiratory wheezes. No rales. CARDIOVASCULAR: Normal S1, S2. No murmurs or gallop. There is no JVD. There is no carotid bruit. Pulses are 2+/4+ bilaterally. ABDOMEN: Soft, nontender, no organomegaly or masses felt. GENITOURINARY: Deferred. RECTAL: Deferred. EXTREMITIES: There is no cyanosis, clubbing or edema. LABORATORY DATA: CT of the neck was grossly unremarkable. Urine drug screen was negative. TSH was 5.5. Troponin was normal. HIV screen was negative. EKG shows sinus tachycardia. WBC was 14,000 on admission without evidence of eosinophilia. Electrolytes were normal. Liver enzymes are normal. Arterial blood gas revealed pH 7.45, pCO2 of 32, pO2 of 103 on 2 liters of O2. Of note, IgE level performed in 10/2017 was normal. IMPRESSION: 1. Apparent allergic reaction to HAZELNUT. 2. Stridor. May be related to allergic reaction. Note that when she was hospitalized about a year ago, she is felt to have vocal cord dysfunction. 3. Asthma, exacerbation. OF note, previous IgE level performed about a year ago was normal. 4. History of severe anxiety disorder. 5. History of bulimia. 6. Severe gastroesophageal reflux disease. 7. Multiple severe allergies including CONTRAST DYE, apparent allergies to HAZELNUT, questionable allergies to MORPHINE 8. Acute hypoxic respiratory failure. 9. Hypertension. 10. Diabetes mellitus type 2. PLAN: Agree with corticosteroids, bronchodilators. Would limit racemic epinephrine use in this patient with a questionable history of vocal cord dysfunction. Agree with use of Pepcid along with Benadryl. [facility] [address] [place] [address] CONSULTATION Name: PEYTON LAURA Room #: 364-P [facility] IN M.R.#: [id number] Admission: 10/28/18 ������������������ Attend Phys: Amari Ames Shakir Discharge: ������������������ Date of : 82 Report #: [id number] We would also obtain IgE level given recent history of allergic reaction. As mentioned above, her IgE was normal in the past. DVT and GI prophylaxis is recommended. Difficult case in this patient with apparent history of asthma, allergies and questionable stridor given the history of vocal cord dysfunction along with anxiety disorder. Thank you for this consultation. ��������������������������������������������� <ELECTRONICALLY SIGNED> ���������������������������������������� By: Felton Lentz MD ��������������������������������������������� 11/01/18 1721 1825 1456 Felton Lentz MD /nt
--- NOTE | 2018-11-01 17:37 | NUR ---
Assumed care of Pt at 0700. Pt alert and oriented, anxious, tremulous. audibly wheezing. stridors to auscultation. complains of chest soreness from frequent coughing fits. up ad mignon w/ steady gait. midline placed by IV team. currently on 2L NC. showered w/ help from BUS DRIVER SUPERVISOR. sinus on telemetry. slow progress toward poc goals.
[2018-11-01 18:51] VITALS: BP 142/90
[2018-11-02 04:20] VITALS: BP 125/69
--- NOTE | 2018-11-02 06:17 | NUR ---
Patient has had several episodes of nausea and vomiting this shift. IV Zofran given but not effective. An order was given for IVPB compazine. Patient responded much better to the compazine and hasn't vomited since. At the time of N/V, patient began to panic and said she felt like her throat was tight, and that she is having trouble breathing. This RN listened to the patient and there were no changes from the initial assessment. Patient was instructed to take slow deep breaths, and the anxiety seemed to subside. Dilaudid given PRN for noncardiac chest pain related to continuous coughing. Partial pain relief has been the outcome. Small sputum coughed up intermittently. The patient has been up ad mignon, and was walking the halls at the start of shift before the vomiting episodes.
[2018-11-02 07:37] VITALS: BP 118/67
[2018-11-02 12:12] VITALS: BP 134/104
[2018-11-02 16:45] VITALS: BP 135/82
--- NOTE | 2018-11-02 18:41 | NUR ---
PATIENT ALERT AND ORIENTED X4, ANXOUS AT TIMES. PATIENT HAVE INCREASED HEART RATE AND TREMORS AFTER BREATHING TREATMENTS. SINUS RHYTHM ON BARBER SHOP MANAGER. ON 2L NASAL CANNULA, WHEEZING PRESENT. DR. SANCHEZ COMPLETED BEDSIDE PROCEDURE TO ASSESS VOCAL CORDS, STATED VOCAL CORDS ARE OPEN. UP INDEPENDENT, WALKED HALLWAY MULTIPLE TIMES DURING SHIFT. PAIN MILDLY CONTROLLED WITH MEDICATION. BLOOD SUGAR MONITORED. FAMILY AND PATIENT UPDATED ON THE PLAN OF CARE, NO SIGNS OF ACUTE DISTRESS NOTED AT THIS TIME. WILL CONTINUE TO MONITOR.
[2018-11-02 19:37] VITALS: BP 148/69
[2018-11-03 03:58] VITALS: BP 148/76
--- NOTE | 2018-11-03 04:23 | NUR ---
PT MAKING SLOW PROGRESS TOWARDS GOALS. OCCASIONAL HARSH COUGHING NOTED. SOME MILD AMOUNTS OF SPUTUM PRODUCTION. AUDITORY WHEEZING NOTED AT TIMES. PT REPORTS A SENSE OF TIGHTNESS WITH BREATHING AND COUGHING. DILAUDID FOR STERNAL PAIN. PT REPORTS FEELING "QWEASY" FREQUENTLY DUE TO GASTROPARESIS BUT HAS NOT ASKED FOR ANY ANTIEMETICS. BIPAP STARTED PT WAS WOB WAS ELEVATED AND UNRELIEVED WITH RT TX AND DILAUDID DOSE. PT DID GET RELIEF WITHIN A FEW MINUTES, LYING BACK IN BED, NOTABLE DECREASE IN WOB. CONTINUE TO MONITOR.
[2018-11-03 07:23] VITALS: BP 160/85
[2018-11-03 11:17] VITALS: BP 150/90
[2018-11-03 15:21] VITALS: BP 150/81
--- NOTE | 2018-11-03 15:54 | NUR ---
SW reviewed chart and spoke with nursing and attending physician. Pt is slowly progressing towards goals for discharge. ENT consulted. Pt has required bipap support due to reactions to abx and anxiety. Plan is for pt to discharge home when medically stable. INGRID is following to assist as needed with discharge planning.
--- NOTE | 2018-11-03 18:00 | NUR ---
PT HAS BIPAP PRN...HER LUNGS VARY FROM DIMINISHED TO CLEAR TO WHEEZY...PATIENT HAS ANXIETY AND RT TX PRN...WILL MONITOR...
[2018-11-03 19:15] VITALS: BP 152/75
[2018-11-03 21:05] LABS: ADENOVIRUS Negative (Negative); INFLUENZA A Negative (Negative); INFLUENZA B Negative (Negative); METAPNEUMOVIRUS Negative (Negative); PARAINFLUENZA 1 Negative (Negative); PARAINFLUENZA 2 Negative (Negative); PARAINFLUENZA 3 Negative (Negative); RHINOVIRUS Negative (Negative); RSV A Negative (Negative); RSV B Negative (Negative)
[2018-11-04 04:19] VITALS: BP 140/85
--- NOTE | 2018-11-04 04:57 | NUR ---
Pt. stated she slept fair during the night with BIPAP on. O2 at 2L/NC when not on BIPAP. Shortness of breath with exertion and still coughing. Up ad mignon in room with steady gait. No nausea or vomiting. Will continue to monitor.
[2018-11-04 08:05] VITALS: BP 148/91
[2018-11-04 11:42] VITALS: BP 142/92
--- NOTE | 2018-11-04 14:41 | NUR ---
SW reviewed chart and spoke with nursing and attending physician. Pt is slowly progressing towards goals for discharge. Pt requiring O2 and bipap support. Plan is for pt to d/c home when medically stable. SW is following to assist as needed with discharge planning.
[2018-11-04 16:29] VITALS: BP 138/86
--- NOTE | 2018-11-04 17:27 | NUR ---
PT REMAINS 01/21 WITH NON CARDIAC CHEST PAIN RE HARSH COUGHING...RT TX..DILAUDID, BENEDRYL AND GUAFENSIN GIVEN PER EMAR...
[2018-11-04 20:41] VITALS: BP 155/99
[2018-11-05 03:29] VITALS: BP 150/103
--- NOTE | 2018-11-05 06:14 | NUR ---
PT STATES SHE WAS NOT HAVING ANY N/V DURING SHIFT. PT REQUEST OF PAIN MEDICATION ON Q4 BASIS AND BENADRYL ON Q6 BASIS, ROTATING WITH HYDROXAZINE. DR. LIRA STARTED NEW MEDICATION AND IT WAS ADMINISTERED WITH 2100 MEDICATIONS. OXYGEN SATURATION OVER SHIFT WAS IN MID TO HIGH 90'S. PT REQUESTED TO GO ON BIPAP AT 0145 AND TOLERATED IT WELL. HOURLY ROUNDING.
[2018-11-05 07:58] VITALS: BP 147/76
--- NOTE | 2018-11-05 12:06 | NUR ---
INGRID reviewed chart and spoke with nursing and attending physician. Pt is slowly progressing towards goals for discharge. Discharge home is anticipated for Saturday. SW met with pt at bedside to discuss discharge plan. Pt reports she used the bipap last night and does require O2 when ambulating. Pt states she has used home O2 in the past through [employer], and would not want to use them again if needed. SW provided additional options for DME companies. No preference voiced if home O2 is needed. Pt will need rest/exercise oximetry prior to discharge. INGRID is following to assist as needed with discharge planning.
[2018-11-05 12:21] VITALS: BP 143/78
[2018-11-05 16:26] VITALS: BP 151/9
[2018-11-05 19:49] VITALS: BP 150/95
--- NOTE | 2018-11-05 19:54 | NUR ---
Assumed pt care this am, pt claims to be nausead and had vomited in the toilet, when checked no vomitus was noted. Pt demanded that pain, anti-histmaine and nausea medication be given on the dot as scheduled though pt did not exhibit symptoms and pain levels verbalized. Pt was able tpo take a bath on her own and ambulated the halls with ease. POC followed no other issued identified,
[2018-11-06 04:00] VITALS: BP 141/82
--- NOTE | 2018-11-06 04:23 | NUR ---
RESUMED CARE FOR PT. PT WALKED AROUND UNIT WITH AND DAUGHTER WITH OXYGEN TANK IN TOW. FOLLOWED BEHIND WITH WHEELCHAIR. PT PROGRESSING TOWARDS DC GOALS WITH ENDURANCE. PT CHIEF COMPLAINT'S ARE CHEST PAIN, NAUSEA, AND ITCHING. FOLLOWING POC WITH MEDICATIONS FOR THOSE ISSUES. ANXIETY LEVEL STILL HIGH. PT WATCHES SHOWS ON HER LAPTOP THAT INCREASE HER ANXIETY LEVELS THAT RELATE TO HER EATING DISORDER. HOURLY ROUNDING. PT SHOULD DC TODAY IF EXERCISE PULSE OX SHOWS FAVORABLE RESULTS.
[2018-11-06 08:18] VITALS: BP 128/72
[2018-11-06 12:13] VITALS: BP 143/84
[2018-11-06 12:44] VITALS: BP 143/84
--- NOTE | 2018-11-06 16:16 | NUR ---
INGRID reviewed chart and spoke with nursing and attending physician. GI consulted today. Pt may have EGD tomorrow. INGRID met with pt at bedside. Pt states that she has plans to resume her outpatient therapy at [facility] (treatment for bulimia) on Saturday. Clinical info has been faxed to the treatment facility earlier today by the unit aide. INGRID placed call to [facility] and left voice message for Akila, to confirm info was received. Plan is for pt to discharge home tomorrow. INGRID is following to assist as needed with discharge planning. [facility]--
[2018-11-06 17:07] VITALS: BP 127/61
--- NOTE | 2018-11-06 18:42 | NUR ---
PT ANXIETY HAS BEEN MUCH BETTER TODAY...SHE PLANS ON HAVING AN EGD TOMORROW @ 3046...AMBULATING IN HALLS...HAS NOT WORN BIPAP THIS SHIFT..
[2018-11-06 19:03] VITALS: BP 155/84
[2018-11-07 05:00] VITALS: BP 137/67
--- NOTE | 2018-11-07 06:00 | NUR ---
Patient has had noncardiac chest pain complaints all shift from coughing. PRN dilaudid given. Patient hasn't needed the bipap and remains on nasal cannula. Patient seemed to have some anxiety earlier in the shift. Patient was flushed and kept stating that she didn't feel good but couldn't explain symptoms but felt like her heart was racing. Reasssurance given and pain decreased after dilaudid administered. No nausea complaints or vomiting. Patient made NPO at midnight for scheduled EGD.
[2018-11-07 07:12] VITALS: BP 149/84
[2018-11-07 11:12] VITALS: BP 140/96
--- NOTE | 2018-11-07 12:15 | NUR ---
SW reviewed chart and spoke with nursing and attending physician. Pt is currently off the unit having EGD. Discharge home is anticipated for tomorrow. INGRID spoke with staff at pt's eating disorder clinic to confirm clinical info was received yesterday. Request for CMP. production planner scheduler faxed CMP from 10/28. SW contacted attending physician and requested one to be completed tomorrow. CMP and final discharge orders/summary will need to be faxed when available. No SW discharge needs at time of discharge. SW is available to assist should needs arise. [facility]--
[2018-11-07] MEDS ORDERED: ERYTHROMYCIN250 M1 PO (14:24)
[2018-11-07] MEDS ORDERED: NYSTATIN100000 UNI SW&SWALLOW (14:24)
[2018-11-07] MEDS ORDERED: TOPAMAX 25 MG T25 M1 PO (14:25)
[2018-11-07] MEDS ORDERED: PULMICORT0.5 MG/21 INH (14:26)
[2018-11-07] MEDS ORDERED: GLUCOPHAGE1000 MG PO (14:26)
--- NOTE | 2018-11-07 14:49 | NUR ---
CALL RECEIVED FROM REJOINER STATING THAT PATIENT IS IN NEED OF ADDITIONAL CLINICAL INFORMATION FAXED TO [facility] AND THAT PATIENT WOULD LIKE TO SPEAK TO SOMEONE IN CASE MANAGEMENT. CALL PLACED TO PATIENT. PATIENT REQUESTING CMP FAXED TO CLINIC. INFORMED PATIENT THAT CMP WAS FAXED TO [facility]. PATIENT WAS ALSO INFORMED THAT ALL DISCHARGE ORDERS AND DISCHARGE SUMMARY WOULD BE FAXED TO [facility] PER REQUEST. PATIENT ACKNOWLEDGED UNDERSTANDING. PATIENT ALSO STATED THAT SHE NEEDED AN EKG COMPLETED PRIOR TO DISCHARGE AND FAXED TO [facility]. CALL PLACED TO UNIT RN. RN TO REACH OUT TO ATTENDING PHYSICIAN FOR EKG ORDER PRIOR TO DISCHARGE AND WILL NOTIFY CM ONCE EKG HAS BEEN COMPLETED. WILL FORWARD TO [facility] ONCE EKG OBTAINED. UNIT CM/SW AWARE. FOLLOWING TO ASSIST WITH DISCHARGE NEEDS.
[2018-11-07 16:16] VITALS: BP 141/74
--- NOTE | 2018-11-07 16:52 | EKG ---
[address] [place] [address] ELECTROCARDIOGRAM REPORT Name: PEYTON LAURA Room #: 364-P ADM IN M.R.#: [id number] ������������������ Admission: 10/28/18 ������������������ Attend Phys: Amari Schilling Discharge: ������������������ Date of : 82 Report #: [id number] ����������������������������������������������������������������� [id number] THIS REPORT FOR: //name// [facility] Test Date: 2018-11-07 Test Time: 15:57:09 Pat Name: PEYTON LAURA Department: Room: 364 P Gender: F Chemical Equipment Controller: Joelle MAYBERRY : 1980 Requested By: Amari Schilling Order Number: [id number] MD: Nic Boone Measurements Intervals [place] Rate: 79 P: 6 AL: 134 QRS: 13 QRSD: 84 T: 13 QT: 387 QTc: 444 Interpretive Statements Sinus rhythm Probable left atrial enlargement Compared to ECG 10/28/2018 22:12:28 Sinus tachycardia no longer present Electronically Signed On 11-07-2018 16:51:53 CDT by Nic Boone [email or web address] ��������������������������������������������� <ELECTRONICALLY SIGNED> ���������������������������������������� By: Nic Boone MD, [facility] ��������������������������������������������� 11/07/18 1651 1557 1557 Nic Boone MD, [facility] /EPI
--- NOTE | 2018-11-07 17:58 | NUR ---
PATIENT WENT DOWN GI LAB FOR EGD. SEEM TO TOLERATE WELL. SHE HAS REQUESTED PAIN MEDICATION Q6HRS FOR NON CARDIAC CHEST PAIN. SHE IS ALERT ORIENTED X4. HAD A SHOWER TODAY. RESPIRAIONS HAVE NON LABORED. NO NEED FOR BIPAP DURING THE DAY. WILL CONT WITH PLAN OF CARE.
[2018-11-07 19:30] VITALS: BP 151/86
[2018-11-08 04:49] VITALS: BP 159/91
--- NOTE | 2018-11-08 06:10 | NUR ---
Patient has had n/v episodes this shift. Relief after IV benadryl given. Patient has still been complaining of noncardiac chest pain. IV dilaudid administered per orders. Discharge plans for today discussed with patient. Patient ready to go home, but concerned about pain meds and doesn't want to have withdrawals. Patient encouraged to discuss with doctor and dayshift nurse her concerns about being discharged with proper medications since she has been taking IV dilaudid for several days now. Patient appears to have made partial progress toward plan of care goals.
[2018-11-08 07:51] VITALS: BP 153/72
[2018-11-08 10:29] VITALS: BP 153/72
[2018-11-08] MEDS ORDERED: OXYCODONE HCL10 MG PO (10:53)
[2018-11-08] MEDS ORDERED: PREDNISONE 20 M20 MG PO (10:59)
--- NOTE | 2018-11-08 12:01 | NUR ---
PATIENT IS BEING DISCHARGED AT THIS TIME HOME WITH FAMILY. SHE IS ALERT ORIENTED X4. RESPIRATIONS ARE NON LABORD. SHE IS PLEASANT WITH CARE. WILL CONT WITH PLAN OF CARE.
--- NOTE | 2018-11-10 17:06 | PATH ---
[facility] [address] [place] [address] PATHOLOGY RPT PROCEDURE Name: RAE LAURA Room #: 364-P DIS IN M.R.#: [id number] ������������������ Admission: 10/28/18 ������������������ Date of : 82 Discharge: 11/08/18 Report #: [id number] Path Case #: [id number] [facility] Accession Number: [id number] . 01 Material submitted: . stomach - BX GASTRITIS R/O H PYLORI . 01 Clinical history: . Pre-OP DX: Nausea with vomiting, dysphagia Post-OP DX: Gastritis, dysphagia . 02 Diagnosis: Gastric mucosa, gastritis, endoscopic biopsy: - Moderate reactive gastropathy. - Negative for intestinal metaplasia or atrophy. - Negative for Helicobacter pylori (properly controlled immunohistochemical stain performed). (IUV:zabrina; 11/10/2018) QMS/11/10/2018 . 02 Electronically signed: . Venita Long MD, Pathologist NPI- [id number] . 01 Gross description: . Received in formalin labeled "Rae Laura, BX gastritis, rule out H. pylori," are 5 segments of rodriges soft tissue measuring 1.5 x 1.0 x 0.2 cm in aggregate dimensions and ranging from 0.3 to 0.5 cm in maximum dimension. The specimen is submitted entirely in cassette A1. (TSD; 11/07/2018) TOB/TOB . 02 Pathologist provided ICD-10: K31.9 . 02 CPT . 313578, C33836 Specimen Comment: A courtesy copy of this report has been sent to Specimen Comment: [phone], , . Specimen Comment: Report sent to ,DR BUTLER / DR SPEARS Performed at: [address] [id number] MD Osmani Johnson MD Phone: [phone] Performed at: [address] [id number] [address] [address] PATHOLOGY RPT PROCEDURE Name: RAE LAURA ISMAEL Room #: 364-P DIS IN M.R.#: [id number] ������������������ Admission: 10/28/18 ������������������ Date of : 82 Discharge: 11/08/18 Report #: [id number] Path Case #: [id number] MD Venita Long MD Phone: [phone]
== END 2018-11-08 11:58 | disposition home or self-care (01) | DRG 915 ==
LOC: ER 18:23 → EROBS 23:08 → 3W 23:08
PROVIDERS: Emergency Medicine; Internal Medicine; Internal Medicine Pulmonary Disease; Nurse Practitioner Acute Care; ADMIT Hospitalist
DX: T78.05XA Anaphylactic reaction due to tree nuts and seeds, initial encounter (principal); J96.01 Acute respiratory failure with hypoxia; F50.2 Bulimia nervosa; J45.902 Unspecified asthma with status asthmaticus; K21.9 Gastro-esophageal reflux disease without esophagitis; I10 Essential (primary) hypertension; F32.9 Major depressive disorder, single episode, unspecified; F41.1 Generalized anxiety disorder; F41.0 Panic disorder [episodic paroxysmal anxiety]; K29.70 Gastritis, unspecified, without bleeding; R13.10 Dysphagia, unspecified; E87.6 Hypokalemia; E11.65 Type 2 diabetes mellitus with hyperglycemia; Z90.49 Acquired absence of other specified parts of digestive tract; Z90.711 Acquired absence of uterus with remaining cervical stump; Z88.8 Allergy status to other drugs, medicaments and biological substances; Z91.041 Radiographic dye allergy status; Z86.711 Personal history of pulmonary embolism; Z91.018 Allergy to other foods; Z79.899 Other long term (current) drug therapy
CPT/HCPCS: 10879; 27000; 62110; 62900; 70005